=== PATIENT | female | born 1980 | race Caucasian/White ===

== ENCOUNTER 2016-10-15 18:57 | Emergency (ER) | payer OTHER, SELFPAY ==
[~2016-10-15] VITALS: Ht 157.5 cm; Wt 66.1 kg
[2016-10-15 18:58] VITALS: BP 125/84
[2016-10-15] MEDS ORDERED: LIDOCAINE 2%, 20ML SQ ONE (19:30)
[2016-10-15] MEDS ORDERED: LIDOCAINE 1%, 20ML ONE (19:36)
== END 2016-10-15 20:15 | disposition home or self-care (01) ==
LOC: ED 20:14
DX: O26.893 Other specified pregnancy related conditions, third trimester (principal); Z3A.28 28 weeks gestation of pregnancy; S61.217A Laceration without foreign body of left little finger without damage to nail, initial encounter; W26.0XXA Contact with knife, initial encounter; Y93.89 Activity, other specified; Y92.89 Other specified places as the place of occurrence of the external cause; Y99.9 Unspecified external cause status
CPT/HCPCS: 12001; 99283